=== PATIENT | female | born 2000 | race Caucasian/White ===

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

== ENCOUNTER 2023-04-17 19:57 | Emergency (ER) | payer OTHER, SELFPAY ==
--- NOTE | ~2023-04-17 | XR_ITS ---
EXAMINATION: PELVIS RIGHT HIP RIGHT KNEE LEFT KNEE CLINICAL INFORMATION: Pain COMPARISON: None. TECHNIQUE: Frontal view of the pelvis 2 views right hip 2 views right knee 2 views left knee FINDINGS: Pelvis: The SI joints, hips and symphysis are normal alignment. No fracture or focal lesion. No evidence of an abnormal pelvic mass or collection. Right hip: No fracture or subluxation. Sclerotic lesion in the right supra-acetabular region could be a bone island but is nonspecific. The femoral head contour appears smooth. Right knee: No fracture, subluxation, or focal lesion. The joint spaces are preserved. No evidence of joint fluid or opaque loose body. Left knee: No fracture, subluxation or focal lesion. The joint spaces are preserved. There is no evidence of joint fluid. XR/XR knee LT 2V IMPRESSION: No acute abnormality demonstrated. No history of trauma is provided
--- NOTE | ~2023-04-17 | XR_ITS ---
EXAMINATION: PELVIS RIGHT HIP RIGHT KNEE LEFT KNEE CLINICAL INFORMATION: Pain COMPARISON: None. TECHNIQUE: Frontal view of the pelvis 2 views right hip 2 views right knee 2 views left knee FINDINGS: Pelvis: The SI joints, hips and symphysis are normal alignment. No fracture or focal lesion. No evidence of an abnormal pelvic mass or collection. Right hip: No fracture or subluxation. Sclerotic lesion in the right supra-acetabular region could be a bone island but is nonspecific. The femoral head contour appears smooth. Right knee: No fracture, subluxation, or focal lesion. The joint spaces are preserved. No evidence of joint fluid or opaque loose body. Left knee: No fracture, subluxation or focal lesion. The joint spaces are preserved. There is no evidence of joint fluid. XR/XR knee RT 2V IMPRESSION: No acute abnormality demonstrated. No history of trauma is provided
--- NOTE | ~2023-04-17 | XR_ITS ---
EXAMINATION: PELVIS RIGHT HIP RIGHT KNEE LEFT KNEE CLINICAL INFORMATION: Pain COMPARISON: None. TECHNIQUE: Frontal view of the pelvis 2 views right hip 2 views right knee 2 views left knee FINDINGS: Pelvis: The SI joints, hips and symphysis are normal alignment. No fracture or focal lesion. No evidence of an abnormal pelvic mass or collection. Right hip: No fracture or subluxation. Sclerotic lesion in the right supra-acetabular region could be a bone island but is nonspecific. The femoral head contour appears smooth. Right knee: No fracture, subluxation, or focal lesion. The joint spaces are preserved. No evidence of joint fluid or opaque loose body. Left knee: No fracture, subluxation or focal lesion. The joint spaces are preserved. There is no evidence of joint fluid. XR/XR hip RT w PEL1V IMPRESSION: No acute abnormality demonstrated. No history of trauma is provided
[2023-04-17 20:05] VITALS: BP 105/66; PULSE 75; RESP 16; TEMP 36.2; O2SAT 98; BMI 23.8
--- OUTSIDE RECORDS SUMMARY | 2023-04-17 20:43 | XMS_ITS | Continuity of Care Document ---
Author Name Unknown Organization [facility] Address [address] [place] [address]- Care Team Providers Care Humidifier Maintenance Worker Name Role Phone Allison ALEXANDER, Joana Rubi Primary Care Physician [phone] [place] [facility] [place]20 [facility] [address] [place] [id number] Attending Physician: Warren Gleason Allergies, Adverse Reactions, Alerts Substance Reaction Severity Status amoxicillin nausea and vomitting Active Medications Pt.'s Own Meds Maintenance, Control Pills, 03/26/19 10:35:21 EST Start Date: 03/26/19 Status: Ordered Senna 8.6 mg oral tablet 8.6 mg, 1, tablet, By Mouth, Daily, PRN, for 30 days, # 36 tablet, Refills 6, Tot. Refills 6, Acute, for constipation, 07/30/20 14:06:00 EDT, 01/02/20 14:06:00 EDT, Route to Pharmacy Electronically, [facility]/pharmacy #[id number] Tablet, 161, cm, 11/10/19 15:45:0... Start Date: 01/02/20 Stop Date: 07/30/20 Status: Ordered Problem List Condition Effective Dates Status Health Status Inform ant Abdominal Pain(Confirmed) Active Constipation(Confirmed) Active Social History Social History Type Response Smoking Status Never smoker; Tobacc o user in household: No entered on: 06/06/17 Sex
--- OUTSIDE RECORDS SUMMARY | 2023-04-17 20:43 | XMS_ITS | Continuity of Care Document ---
Author Name Unknown Organization [facility] Address [address] [place] [address]- Care Team Providers Care Sales Utility Representative Name Role Phone Joana Cooper MD Primary Care Physician Encounter [facility] [place] Date(s): 06/04/20 - 07/04/20 [facility] [address] [place] [address]- Allergies, Adverse Reactions, Alerts Substance Reaction Severity Status amoxicillin nausea and vomitting Active Medications Amitiza 24 mcg oral capsule 1 capsule = 24 mcg, By Mouth, 2 times a day, # 60 capsule, 6 Refills, Maintenance, 06/17/20 19:24:00 EST, Capsule, [id number], Partial fill upon patient request if the prescription is for a schedule II opioid drug., 161, cm, 11/10/19 15:45:00... Start Date: 06/17/20 Stop Date: 01/13/21 Status: Ordered Dulcolax 5 mg oral enteric coated tablet 3 tablet = 15 mg, By Mouth, Once, # 4 tablet, 0 Refills, Soft Stop, 06/04/20 14:44:00 EST, [id number], Partial fill upon patient request if the prescription is for a schedule II opioid drug.,161, cm, 11/10/19 15:45:00 EDT, Height, 50.4, kg, 0... Start Date: 06/04/20 Status: Ordered MiraLax = 17 Gm, By Mouth, Daily, 0 Refills, Maintenance, 06/26/20 10:54:00 EST, Partial fill upon patient request if the prescription is for a schedule II opioid drug. Start Date: 06/26/20 Status: Ordered Pt.'s Own Meds Maintenance, Control Pills, 03/26/19 10:35:21 EST Start Date: 03/26/19 Status: Ordered Senna 8.6 mg oral tablet 8.6 mg, 1, tablet, By Mouth, Daily, PRN, for 30 days, # 36 tablet, Refills 6, Tot. Refills 6, Acute, for constipation, 07/30/20 14:06:00 EDT, 01/02/20 14:06:00 EDT, Route to Pharmacy Electronically, [facility]/pharmacy #[id number] Tablet, 161, cm, 11/10/19 15:45:0... Start Date: 01/02/20 Stop Date: 07/30/20 Status: Ordered Problem List Condition Effective Dates Status Health Status Inform ant Abdominal Pain(Confirmed) Active Constipation(Confirmed) Active Social History Social History Type Response Smoking Status Never smoker; Tobacc o user in household: No entered on: 06/06/17 Sex
--- OUTSIDE RECORDS SUMMARY | 2023-04-17 20:43 | XMS_ITS | Continuity of Care Document ---
Author Name Unknown Organization [facility] Address [address] [place] [id number]- Care Team Providers Care International Trade Teacher Name Role Phone Joana Cooper MD Primary Care Physician [place] [facility] [place](s): 12/04/21 - 01/03/22 [facility] [address] [place] [id number] Allergies, Adverse Reactions, Alerts Substance Reaction Severity Status amoxicillin nausea and vomitting Active Cats Active Dogs Active Dust Active Grass Active Mold Active Pollen Active Medications acetaminophen 325 mg oral capsule 2 capsule = 650 mg, By Mouth, Every 4 hours, PRN as needed for pain, # 50 tablet, 0 Refills, Maintenance, 12/20/21 17:11:00 EDT, Capsule, [id number], Partial fill upon patient request if the prescription is for a schedule II opioid drug., 158,... Start Date: 12/20/21 Status: Ordered Valerie By Mouth, 0 Refills, Maintenance, 09/11/20 13:38:00 EDT, Partial fill upon patient request if the prescription is for a schedule II opioid drug. Start Date: 09/11/20 Status: Ordered Amitiza 24 mcg oral capsule 1 capsule = 24 mcg, By Mouth, 2 times a day, # 60 capsule, 6 Refills, Maintenance, 06/17/20 19:24:00 EST, Capsule, [id number], Partial fill upon patient request if the prescription is for a schedule II opioid drug., 161, cm, 11/10/19 15:45:00... Start Date: 06/17/20 Stop Date: 01/13/21 Status: Ordered Aspirin Low Dose 81 mg oral delayed release tablet 2 tablet = 162 mg, By Mouth, Daily, # 90 tablet, 0 Refills, Maintenance, 11/29/21 1:08:00 EDT, CR Tablet, Partial fill upon patient request if the prescription is for a schedule II opioid drug. Start Date: 11/29/21 Status: Ordered control control, Refills 0, Maintenance, 09/11/20 13:38:00 EDT, Supply Start Date: 09/11/20 Status: Ordered Colace sodium 100 mg oral capsule 100 mg, 1, capsule, By Mouth, 2 times a day, PRN, # 20 capsule, Refills 0, Tot. Refills 0, Maintenance, for constipation, 12/20/21 17:11:00 EDT, Route to Pharmacy Electronically, [id number], Partial fill upon patient request if the prescriptio... Start Date: 12/20/21 Status: Ordered diclofenac sodium 50 mg oral delayed release tablet 1 tablet, By Mouth, 2 times a day, # 60 tablet, 0 Refills, [id number], 161, cm, 10/20/20 13:05:00 EDT, Height, 50.4, kg, 11/10/19 15:45:00 EDT, Dry Weight Start Date: 01/28/21 Status: Ordered Dulcolax 5 mg oral enteric coated tablet 3 tablet = 15 mg, By Mouth, Once, # 4 tablet, 0 Refills, Soft Stop, 06/04/20 14:44:00 EST, [id number], Partial fill upon patient request if the prescription is for a schedule II opioid drug.,161, cm, 11/10/19 15:45:00 EDT, Height, 50.4, kg, 0... Start Date: 06/04/20 Status: Ordered Ferrous Sulfate ER Refills 0, Maintenance, 11/29/21 1:08:00 EDT, Partial fill upon patient request if the prescriptionis for a schedule II opioid drug. Start Date: 11/29/21 Status: Ordered ibuprofen 600 mg oral tablet 600 mg, 1, tablet, By Mouth, Every 6 hours, # 50 tablet, Refills 0, Tot. Refills 0, Maintenance, 12/20/21 17:11:00 EDT, Route to Pharmacy Electronically, [id number], Partial fill upon patientrequest if the prescription is for a schedule II op... Start Date: 12/20/21 Status: Ordered metroNIDAZOLE 500 mg oral tablet 1 tablet = 500 mg, By Mouth, Every 12 hours, # 14 tablet, 0 Refills, Maintenance, 11/29/21 3:25:00 EDT, Tablet, [facility]/pharmacy #[id number], Partial fill upon patient request if the prescription is for a schedule II opioid drug., 160.2, cm, 06/10/21 11:01:00 E... Start Date: 11/29/21 Stop Date: 12/06/21 Status: Ordered MiraLax = 17 Gm, By Mouth, Daily, 0 Refills, Maintenance, 06/26/20 10:54:00 EST, Partial fill upon patient request if the prescription is for a schedule II opioid drug. Start Date: 06/26/20 Status: Ordered 1 0 Refills, Maintenance, 06/10/21 11:03:00 EST, Partial fill upon patient request if the prescription is for a schedule II opioid drug. Start Date: 06/10/21 Status: Ordered Pt.'s Own Meds Maintenance, Control Pills, 03/26/19 10:35:21 EST Start Date: 03/26/19 Status: Ordered simethicone 125 mg oral tablet, chewable 1 tablet = 125 mg, Chew, 4 times a day, # 48 tablet, 0 Refills, Maintenance, 12/20/21 17:11:00 EDT,Chew Tablet, [facility]/pharmacy #[id number], Partial fill upon patient request if the prescription is for a schedule II opioid drug., 158, cm, 12/20/21 9:04:00 EDT... Start Date: 12/20/21 Status: Ordered Problem List Condition Effective Dates Status Health Status Inform ant Abdominal Pain(Confirmed) Active Constipation(Confirmed) Active Social History Social History Type Response Smoking Status Never smoker; Tobacc o user in household: No entered on: 06/06/17 Sex
--- OUTSIDE RECORDS SUMMARY | 2023-04-17 20:43 | XMS_ITS | Continuity of Care Document ---
Author Name Unknown Organization [facility] Address [address] [place] [address]- Care Team Providers Care International Trade Compliance Manager Name Role Phone Allison ALEXANDER, Joana Rubi Primary Care Physician Encounter [facility] [place] Date(s): 10/20/20 - 11/19/20 [facility] [address] [place] [id number] Attending Physician: Warren Gleason Admitting Physician: AdmtrWarren Referring Physician: AdmtrWarren Allergies, Adverse Reactions, Alerts Substance Reaction Severity Status amoxicillin nausea and vomitting Active Cats Active Dogs Active Dust Active Grass Active Mold Active Pollen Active Medications Valerie By Mouth, 0 Refills, Maintenance, 09/11/20 [...] Date: 06/17/20 Stop Date: 01/13/21 Status: Ordered control control, Refills 0, Maintenance, 09/11/20 13:38:00 EDT, Supply Start Date: 09/11/20 Status: Ordered diclofenac sodium 50 mg oral delayed release tablet 1 tablet, By Mouth, 2 times a day, # 60 tablet, 0 Refills, Maintenance, 10/02/20 9:36:00 EDT, [id number], 161, cm, 09/08/20 12:58:00 EDT, Height, 50.4, kg, 11/10/19 15:45:00 EDT, Dry Weight Start Date: 10/02/20 Status: Ordered Dulcolax 5 mg oral enteric coated tablet 3 tablet = 15 mg, By Mouth, Once, # 4 tablet, 0 Refills, Soft Stop, 06/04/20 14:44:00 EST, [facility]/pharmacy #[id number], Partial fill upon patient request if [...] 10:35:21 EST Start Date: 03/26/19 Status: Ordered Problem List Condition Effective Dates Status Health Status Inform ant Abdominal Pain(Confirmed) Active Constipation(Confirmed) Active Social History Social History Type Response Smoking Status Never smoker; Tobacc o user in household: No entered on: 06/06/17 Sex
--- OUTSIDE RECORDS SUMMARY | 2023-04-17 20:43 | XMS_ITS | Continuity of Care Document ---
Author Name Unknown Organization [facility] Address [address] [place] [address]- Care Team Providers Care Correctional Manager Name Role Phone Allison ALEXANDER, Joana Rubi Primary Care Physician [phone] Encounter [facility] [place] Date(s): 10/20/20 - 10/27/20 [facility] [address] [place] [id number] Attending Physician: Fercho Alfonso MD Admitting Physician: Fercho Alfonso MD Allergies, Adverse Reactions, Alerts Substance Reaction Severity [...] 6 Refills, Maintenance, 06/17/20 19:24:00 EST, Capsule, [facility]/pharmacy #[id number], Partial fill upon patient request [...] Refills, Maintenance, 10/02/20 9:36:00 EDT, [id number], 161, cm, 09/08/20 12:58:00 EDT, Height, 50.4, kg, 11/10/19 15:45:00 EDT, Dry Weight Start Date: 10/02/20 Status: Ordered Dulcolax 5 mg oral enteric coated tablet 3 tablet = 15 mg, By Mouth, Once, # 4 tablet, 0 Refills, Soft Stop, 06/04/20 14:44:00 EST, [facility]/pharmacy #[id number], Partial fill upon patient request [...] Inform ant Abdominal Pain(Confirmed) Active Constipation(Confirmed) Active Vital Signs Most recent to oldest [Reference Range]: 1 Height 161 cm (10/20/20 1:05 PM) Social History Social History Type Response Smoking Status Never smoker; Tobacc o user in household: No entered on: 06/06/17 Sex
--- OUTSIDE RECORDS SUMMARY | 2023-04-17 20:43 | XMS_ITS | Continuity of Care Document ---
Author Name Unknown Organization [facility] Address [address] [place] [address]- Care Team Providers Care Circuit Designer Name Role Phone Joana Cooper MD Primary Care Physician Encounter [facility] [place] Date(s): 06/13/20 - 07/13/20 [facility] [address] [place] [address]- Allergies, Adverse Reactions, Alerts Substance Reaction Severity [...] 01/02/20 14:06:00 EDT, Route to Pharmacy Electronically, [facility]/pharmacy #[id number] Tablet, 161, cm, 11/10/19 15:45:0... Start Date: 01/02/20 Stop Date: 07/30/20 Status: Ordered Problem List Condition Effective Dates Status Health Status Inform ant Abdominal Pain(Confirmed) Active Constipation(Confirmed) Active Social History Social History Type Response Smoking Status Never smoker; Tobacc o user in household: No entered on: 06/06/17 Sex
--- OUTSIDE RECORDS SUMMARY | 2023-04-17 20:43 | XMS_ITS | Continuity of Care Document ---
Author Name Unknown Organization [facility] ialty Address [address] [place] [address]- Care Team Providers Care Unit Educator Name Role Phone Joana Cooper MD Primary Care Physician [place] [facility] [place] [id number] Date(s): 05/02/19 - 05/12/19 [facility] [address] [place] [address]- [facility] Attending Physician: Warren Gleason Admitting Physician: AdmtrWarren Referring Physician: Admtr, ArJimena Allergies, Adverse Reactions, Alerts Substance Reaction Severity Status amoxicillin Active Medications diclofenac sodium 50 mg oral delayed release tablet 1 tablet = 50 mg, By Mouth, 2 times a day, # 60 tablet, 2 Refills, Maintenance, 01/01/19 13:54:50 EDT, EC Tablet Start Date: 01/01/19 Stop Date: 04/01/19 Status: Ordered diclofenac sodium 50 mg oral delayed release tablet 1 tablet = 50 mg, By Mouth, 2 times a day, with food, # 60 tablet, 2 Refills, Maintenance, 05/02/1914:34:00 EST, EC Tablet, [facility]/pharmacy #[id number], 158, cm, 05/02/19 13:47:00 EST, Height, 53, kg, 10/06/18 15:48:00 EDT, Dry Weight Start Date: 05/02/19 Status: Ordered diclofenac sodium 50 mg oral delayed release tablet 1 tablet = 50 mg, By Mouth, 2 times a day, with food, # 60 tablet, 2 Refills, Maintenance, 02/07/1812:16:09 EDT, EC Tablet Start Date: 02/06/18 Status: Ordered Diclofenac Topical Topically, 0 Refills, Maintenance, 01/01/19 13:55:52 EDT Start Date: 01/01/19 Status: Ordered Dulcolax 5 mg oral enteric coated tablet 3 tablet = 15 mg, By Mouth, Once, # 4 tablet, 0 Refills, Soft Stop, 09/29/17 15:58:08 EDT Start Date: 09/29/17 Status: Ordered ibuprofen 400 mg oral tablet 400 mg, By Mouth, Every 6 hours, PRN, # 50 tablet, Refills 0, Tot. Refills 0, Soft Stop, Pain , Mild, 10/06/18 16:13:07 EDT, Print Requisition Start Date: 10/06/18 Status: Ordered MiraLax oral powder for reconstitution = 17 Gm, By Mouth, Daily, # 30 Doses, 11 Refills, Maintenance, 06/30/16 17:59:32, 17 Gm By Mouth Daily,x30 days Start Date: 06/30/16 Stop Date: 06/25/17 Status: Ordered Multivitamin Daily, 0 Refills, Maintenance, 02/06/18 11:40:58 EDT Start Date: 02/06/18 Status: Ordered Pt.'s Own Meds Maintenance, Control Pills, 03/26/19 10:35:21 EST Start Date: 03/26/19 Status: Ordered Problem List Condition Effective Dates Status Health Status Inform ant Abdominal Pain(Confirmed) Active Constipation(Confirmed) Active Social History Social History Type Response Smoking Status Never smoker; Tobacc o user in household: No entered on: 06/06/17 Sex
--- OUTSIDE RECORDS SUMMARY | 2023-04-17 20:43 | XMS_ITS | Continuity of Care Document ---
Author Name Unknown Organization [facility] ialty Address [address] [place] [address]- Care Team Providers Care Paper Tube Grader Name Role Phone Joana Cooper MD Primary Care Physician [phone] [place] [facility] [place] 05/02/19 - 05/09/19 [facility] [address] [place] [address]- [facility] Attending Physician: Fercho Alfonso MD Referring Physician: Joana Cooper MD Allergies, Adverse Reactions, Alerts Substance Reaction [...] 2 Refills, Maintenance, 05/02/1914:34:00 EST, EC Tablet, [facility]/pharmacy #[id number], 158, cm, 05/02/19 13:47:00 EST, [...] recent to oldest [Reference Range]: 1 Height 158 cm (05/02/19 1:47 PM) Social History Social History Type Response Smoking Status Never smoker; Tobacc o user in household: No entered on: 06/06/17 Sex
--- OUTSIDE RECORDS SUMMARY | 2023-04-17 20:43 | XMS_ITS | Continuity of Care Document ---
Author Name Unknown Organization [facility] Address [address] [place] [address]- Care Team Providers Care Toolroom Attendant Name Role Phone Joana Cooper MD Primary Care Physician [phone] Encounter [facility] [place] Date(s): 06/26/20 - 07/26/20 [facility] [address] [place] [address]- Attending Physician: Warren Gleason Admitting Physician: AdmtrWarren Referring Physician: Admtr, Ar8 Allergies, Adverse Reactions, Alerts Substance Reaction Severity [...] 01/02/20 14:06:00 EDT, Route to Pharmacy Electronically, [facility]/pharmacy #[id number] Tablet, 161, cm, 11/10/19 15:45:0... Start Date: 01/02/20 Stop Date: 07/30/20 Status: Ordered Problem List Condition Effective Dates Status Health Status Inform ant Abdominal Pain(Confirmed) Active Constipation(Confirmed) Active Social History Social History Type Response Smoking Status Never smoker; Tobacc o user in household: No entered on: 06/06/17 Sex
--- OUTSIDE RECORDS SUMMARY | 2023-04-17 20:43 | XMS_ITS | Continuity of Care Document ---
Author Name Unknown Organization [facility] Address [address] [place] [address]- Care Team Providers Care History Instructor Name Role Phone Joana Cooper MD Primary Care Physician [place] [facility] [place] 07/29/21 - 08/28/21 [facility] [address] [place] [id number] Allergies, Adverse Reactions, Alerts Substance Reaction Severity [...] # 60 tablet, 0 Refills, [facility], 161, cm, 10/20/20 13:05:00 EDT, Height, 50.4, kg, 11/10/19 15:45:00 EDT, Dry Weight Start Date: 01/28/21 Status: Ordered Dulcolax 5 mg oral enteric coated tablet 3 tablet = 15 mg, By Mouth, Once, # 4 tablet, 0 Refills, Soft Stop, 06/04/20 14:44:00 EST, [facility]/pharmacy #[id number], Partial fill upon patient request [...]
--- OUTSIDE RECORDS SUMMARY | 2023-04-17 20:43 | XMS_ITS | Continuity of Care Document ---
Author Name Unknown Organization [facility] Address [address] [place] [address]- Care Team Providers Care Prehemmer Name Role Phone Allison ALEXANDER, Joana Rubi Primary Care Physician [place] [facility] [place] Date(s): 06/26/20 - 07/03/20 [facility] [address] [place] [address]- Attending Physician: Paul Levy MD Allergies, Adverse Reactions, Alerts Substance Reaction [...] 01/02/20 14:06:00 EDT, Route to Pharmacy Electronically, [facility]/pharmacy #[id number] Tablet, 161, cm, 11/10/19 15:45:0... Start Date: 01/02/20 Stop Date: 07/30/20 Status: Ordered Problem List Condition Effective Dates Status Health Status Inform ant Abdominal Pain(Confirmed) Active Constipation(Confirmed) Active Vital Signs Most recent to oldest [Reference Range]: 1 Weight Obtained Via Patient/family state d (06/26/20 10:53 AM) Social History Social History Type Response Smoking Status Never smoker; Tobacc o user in household: No entered on: 06/06/17 Sex
--- OUTSIDE RECORDS SUMMARY | 2023-04-17 20:43 | XMS_ITS | Continuity of Care Document ---
Author Name Unknown Organization [facility] Address [address] [place] [address]- Care Team Providers Care Product Safety Coordinator Name Role Phone Joana Cooper MD Primary Care Physician Encounter [facility] Date(s): 12/03/20 - 01/02/[address] [address] Attending Physician: Admtr, Ar8 Admitting Physician: Admtr, Ar8 Referring Physician: Admtr, Ar8 Allergies, Adverse Reactions, [...] 6 Refills, Maintenance, 06/17/20 19:24:00 EST, Capsule, [facility]/pharmacy #[id number], Partial fill upon patient request if [...] Refills, Maintenance, 10/02/20 9:36:00 EDT, [facility], 161, cm, 09/08/20 12:58:00 EDT, Height, 50.4, kg, 11/10/19 15:45:00 EDT, Dry Weight Start Date: 10/02/20 Status: Ordered Dulcolax 5 mg oral enteric coated tablet 3 tablet = 15 mg, By Mouth, Once, # 4 tablet, 0 Refills, Soft Stop, 06/04/20 14:44:00 EST, [facility]/pharmacy #[id number], Partial fill upon patient request if [...]
--- OUTSIDE RECORDS SUMMARY | 2023-04-17 20:44 | XMS_ITS | Continuity of Care Document ---
Author Name Unknown Organization [facility] Address [address] [place] [address]- Care Team Providers Care Asphalt Paving Machine Operator Name Role Phone Allison ALEXANDER, Joana Rubi Primary Care Physician Encounter [facility] [place] Date(s): 09/08/20 - 09/15/20 [facility] [address] [place] [id number] Attending Physician: Fercho Alfonso MD Admitting Physician: [...] day, # 60 tablet, 0 Refills, Maintenance, 09/08/20 13:13:00 EDT, EC Tablet, [id number], Partial fill upon patient request if the prescription is for a schedule II opioid drug., 161, cm, 09/08/20 12:58:00 E... Start Date: 09/08/20 Status: Ordered Dulcolax 5 mg oral enteric coated tablet 3 tablet = 15 mg, By Mouth, Once, # 4 tablet, 0 Refills, Soft Stop, 06/04/20 14:44:00 EST, [facility]/pharmacy #[id number], Partial fill upon patient request if [...] oldest [Reference Range]: 1 Height 161 cm (09/08/20 12:58 PM) Social History Social History Type Response Smoking Status Never smoker; Tobacc o user in household: No entered on: 06/06/17 Sex
--- OUTSIDE RECORDS SUMMARY | 2023-04-17 20:44 | XMS_ITS | Continuity of Care Document ---
Author Name Unknown Organization [facility] Address [address] [place] [address]- Care Team Providers Care Junior Bookkeeper Name Role Phone Allison ALEXANDER, Joana Rubi Primary Care Physician [phone] En[place] [facility] [place] Date(s): 01/02/20 - 01/09/20 [facility] [address] [place] [address]- [facility] Attending Physician: Paul Levy MD Allergies, Adverse [...] 01/02/20 14:06:00 EDT, Route to Pharmacy Electronically, [facility]/pharmacy #[id number] Tablet, 161, cm, 11/10/19 15:45:0... Start Date: 01/02/20 Stop Date: 07/30/20 Status: Ordered Problem List Condition Effective Dates Status Health Status Inform ant Abdominal Pain(Confirmed) Active Constipation(Confirmed) Active Social History Social History Type Response Smoking Status Never smoker; Tobacc o user in household: No entered on: 06/06/17 Sex
--- OUTSIDE RECORDS SUMMARY | 2023-04-17 20:44 | XMS_ITS | Continuity of Care Document ---
Author Name Unknown Organization [facility] Address [address] [place] [address]- Care Team Providers Care Federal Law Clerk Name Role Phone Allison ALEXANDER, Joana Rubi Primary Care Physician [phone] [place] [facility] [place] Date(s): 12/05/19 - 01/04/20 [facility] [address] [place] [address]- [place] [facility] Attending Physician: Warren Gleason Admitting Physician: Warren Gleason Referring Physician: Warren Gleason Allergies, Adverse Reactions, Alerts [...] 01/02/20 14:06:00 EDT, Route to Pharmacy Electronically, [facility]/pharmacy #[id number] Tablet, 161, cm, 11/10/19 15:45:0... Start Date: 01/02/20 Stop Date: 07/30/20 Status: Ordered Problem List Condition Effective Dates Status Health Status Inform ant Abdominal Pain(Confirmed) Active Constipation(Confirmed) Active Social History Social History Type Response Smoking Status Never smoker; Tobacc o user in household: No entered on: 06/06/17 Sex
--- OUTSIDE RECORDS SUMMARY | 2023-04-17 20:44 | XMS_ITS | Continuity of Care Document ---
Author Name Unknown Organization [facility] Address [address] [place] [address]- Care Team Providers Care Float Remover Name Role Phone Joana Cooper MD Primary Care Physician [place] [facility] [place] - 09/04/21 [facility] [address] [place] [id number] Allergies, Adverse Reactions, Alerts Substance Reaction Severity Status amoxicillin nausea and vomitting Active Cats Active Dogs Active Mold Active Dust Active Grass Active Pollen Active Medications Valerie By Mouth, [...] # 60 tablet, 0 Refills, [facility], 161, cm, 10/20/20 13:05:00 EDT, Height, 50.4, kg, 11/10/19 15:45:00 EDT, Dry Weight Start Date: 01/28/21 Status: Ordered Dulcolax 5 mg oral enteric coated tablet 3 tablet = 15 mg, By Mouth, Once, # 4 tablet, 0 Refills, Soft Stop, 06/04/20 14:44:00 EST, [facility]/pharmacy #[id number], Partial fill upon patient request [...]
--- OUTSIDE RECORDS SUMMARY | 2023-04-17 20:44 | XMS_ITS | Continuity of Care Document ---
Author Name Unknown Organization [facility] Address [address] [place] [address]- Care Team Providers Care Blending Machine Operator Name Role Phone Joana Cooper MD Primary Care Physician [place] [facility] [place]18[place] - 12/20/[address] [address]- Discharge Disposition: A-D/C Home Attending Physician: Bonita Han MD Admitting Physician: Bonita Han MD Referring Physician: Bonita Han MD Allergies, Adverse Reactions, Alerts Substance Reaction [...] 12/20/21 17:11:00 EDT, Route to Pharmacy Electronically, [facility]/pharmacy #[id number], Partial fill upon patient request if the prescriptio... Start Date: 12/20/21 Status: Ordered diclofenac sodium 50 mg oral delayed release tablet 1 tablet, By Mouth, 2 times a day, # 60 tablet, 0 Refills, [facility], 161, cm, 10/20/20 13:05:00 EDT, Height, 50.4, kg, 11/10/19 15:45:00 EDT, Dry Weight Start Date: 01/28/21 Status: Ordered Dulcolax 5 mg oral enteric coated tablet 3 tablet = 15 mg, By Mouth, Once, # 4 tablet, 0 Refills, Soft Stop, 06/04/20 14:44:00 EST, [facility]/pharmacy #[id number], Partial fill upon patient [...] 0 Refills, Maintenance, 11/29/21 3:25:00 EDT, [facility]t, [id number], Partial fill upon patient [...] 0 Refills, Maintenance, 12/20/21 17:11:00 EDT,Chew Tablet, [id number], Partial fill upon patient request if the prescription is for a schedule II opioid drug., 158, cm, 12/20/21 9:04:00 EDT... Start Date: 12/20/21 Status: Ordered Problem List Condition Effective Dates Status Health Status Inform ant Abdominal Pain(Confirmed) Active Constipation(Confirmed) Active Procedures Procedure Date Related Diagnosis Body Site Status Shoulder repair Completed Wrist repair Completed Vital Signs Most recent to oldest [Reference Range]: 1 2 3 Height 158 cm (12/20/21 8:00 AM) 158 cm (12/20/21 1:25 AM) 158 cm (12/19/21 8:48 PM) Weight 77.5 kg (12/18/21 2:20 PM) 78.3 kg (12/18/21 1:31 AM) Oxygen Saturation [94-100 %] 96 % (12/20/21 8:00 AM) 99 % (12/20/21 1:25 AM) 100 % (12/19/21 8:48 PM) Pulse Rate [55-90 bpm] 79 bpm (12/20/21 8:00 AM) 87 bpm (12/20/21 1:25 AM) 95 bpm *H* (12/19/21 8:48 PM) Body Mass Index [18.5-24.99] 31.04 *>HHI* (12/18/21 2:20 PM) Blood Pressure [90-138/55-84 mm Hg] 111/58mm Hg (12/20/21 8:00 AM) 113/70mm Hg (12/20/21 1:25 AM) 118/68mm Hg (12/19/21 8:48 PM) Respiratory Rate [16-30 br/min] 18 br/min (12/20/21 8:00 AM) 18 br/min (12/20/21 1:25 AM) 18 br/min (12/19/21 8:48 PM) Temperature [96.8-100.4 DegF] 97.8 DegF (12/20/21 8:00 AM) 98.1 DegF (12/20/21 1:25 AM) 98.1 DegF (12/19/21 8:48 PM) Mode of Delivery (Oxygen) Room air (12/20/21 1:25 AM) Room air (12/19/21 8:48 PM) Room air (12/19/21 4:00 PM) Blood pressure sites Arm, right (12/20/21 8:00 AM) Arm, right (12/20/21 1:25 AM) Arm, right (12/19/21 8:48 PM) Temperature Route Oral (12/20/21 8:00 AM) Oral (12/20/21 1:25 AM) Oral (12/19/21 8:48 PM) Dry Weight 77.5 kg (12/18/21 2:20 PM) 78.3 kg (12/18/21 1:31 AM) Weight Obtained Via Standing scale (12/18/21 1:31 AM) Dry Weight Obtained Via Standing scale (12/18/21 1:31 AM) Social History Social History Type Response Smoking Status Never smoker; Tobacc o user in household: No entered on: 06/06/17 Sex
--- OUTSIDE RECORDS SUMMARY | 2023-04-17 20:44 | XMS_ITS | Continuity of Care Document ---
Author Name Unknown Organization [facility] Address [address] [place] [address]- Care Team Providers Care Aluminum Hydroxide Process Operator Name Role Phone Joana Cooper MD Primary Care Physician [phone] En[facility] [place] Date(s): 08/04/21 - 09/03/21 [facility] [address] [place] [address]- Attending Physician: Admtr, Ar8 Admitting Physician: Admtr, [...] # 60 tablet, 0 Refills, [facility], 161, cm, 10/20/20 13:05:00 EDT, Height, 50.4, kg, 11/10/19 15:45:00 EDT, Dry Weight Start Date: 01/28/21 Status: Ordered Dulcolax 5 mg oral enteric coated tablet 3 tablet = 15 mg, By Mouth, Once, # 4 tablet, 0 Refills, Soft Stop, 06/04/20 14:44:00 EST, [facility]/pharmacy #[id number], Partial fill upon patient request if [...]
--- OUTSIDE RECORDS SUMMARY | 2023-04-17 20:44 | XMS_ITS | Continuity of Care Document ---
Author Name Unknown Organization [facility] Address [address] [place] [address]- Care Team Providers Care Block Cutter Name Role Phone Allison ALEXANDER, Joana Rubi Primary Care Physician En[place] [facility] [place] Date(s): 03/25/21 - 04/24/21 [facility] [address] [place] [address]- [place] Allergies, Adverse Reactions, Alerts Substance Reaction Severity [...] # 60 tablet, 0 Refills, [facility], 161, cm, 10/20/20 13:05:00 EDT, Height, 50.4, kg, 11/10/19 15:45:00 EDT, Dry Weight Start Date: 01/28/21 Status: Ordered Dulcolax 5 mg oral enteric coated tablet 3 tablet = 15 mg, By Mouth, Once, # 4 tablet, 0 Refills, Soft Stop, 06/04/20 14:44:00 EST, [facility]/pharmacy #[id number], Partial fill upon patient request [...]
--- OUTSIDE RECORDS SUMMARY | 2023-04-17 20:44 | XMS_ITS | Continuity of Care Document ---
Author Name Unknown Organization [facility] Address [address] [place] [address]- Care Team Providers Care Outsole Paraffiner Name Role Phone Joana Cooper MD Primary Care Physician Encounter [facility] [place] Date(s): 11/29/21 - 11/29/[address] [address]- Discharge Disposition: A-D/C Home Attending Physician: Andrés ALEXANDER July Admitting Physician: Andrés ALEXANDER July Referring Physician: Andrés ALEXANDER July Allergies, Adverse Reactions, Alerts Substance Reaction Severity [...] 6 Refills, Maintenance, 06/17/20 19:24:00 EST, Capsule, [facility]/pharmacy #[id number], Partial fill upon patient request if [...] # 60 tablet, 0 Refills, [facility], 161, cm, 10/20/20 13:05:00 EDT, Height, 50.4, [...] opioid drug. Start Date: 11/29/21 Status: Ordered metroNIDAZOLE 500 mg oral tablet 1 tablet = 500 mg, By Mouth, Every 12 hours, # 14 tablet, 0 Refills, Maintenance, 11/29/21 3:25:00 EDT, Tablet, [facility]/pharmacy #[id number], Partial fill upon patient request if [...] Most recent to oldest [Reference Range]: 1 Oxygen Saturation [94-100 %] 95 % (11/29/21 1:09 AM) Blood Pressure [90-138/55-84 mm Hg] 117/ 80mm Hg (11/29/21 1:09 AM) Respiratory Rate [16-30 br/min] 18 br/mi n (11/29/21 1:05 AM) Temperature [96.8-100.4 DegF] 98.7 DegF (11/29/21 1:05 AM) Mode of Delivery (Oxygen) Room air (11/29/21 1:05 AM) Blood pressure sites Arm, right (11/29/21 1:05 AM) Temperature Route Oral (11/29/21 1:05 AM) Social History Social History Type Response Smoking Status Never smoker; Tobacc o user in household: No entered on: 06/06/17 Sex
--- OUTSIDE RECORDS SUMMARY | 2023-04-17 20:44 | XMS_ITS | Continuity of Care Document ---
Author Name Unknown Organization [facility] Address [address] [place] [address]- Care Team Providers Care Field Producer Name Role Phone Joana Cooper MD Primary Care Physician [place] [facility] [place]s): 06/10/21 - 07/10/21 [facility] [address] [place] [address]- Attending Physician: Warren Gleason Admitting Physician: AdmtrWarren [...] # 60 tablet, 0 Refills, [facility], 161, cm, 10/20/20 13:05:00 EDT, Height, 50.4, kg, 11/10/19 15:45:00 EDT, Dry Weight Start Date: 01/28/21 Status: Ordered Dulcolax 5 mg oral enteric coated tablet 3 tablet = 15 mg, By Mouth, Once, # 4 tablet, 0 Refills, Soft Stop, 06/04/20 14:44:00 EST, [facility]/pharmacy #[id number], Partial fill upon patient request [...]
--- OUTSIDE RECORDS SUMMARY | 2023-04-17 20:44 | XMS_ITS | Continuity of Care Document ---
Author Name Unknown Organization [facility] Address [address] [place] [address]- Care Team Providers Care Superintendent Transportation Name Role Phone Joana Cooper MD Primary Care Physician [place] [facility] [place] 06/10/21 - 07/10/21 [facility] [address] [place] [address]- Attending Physician: Admtr, Ar8 Admitting Physician: Admtr, [...] # 60 tablet, 0 Refills, [facility], 161, cm, 10/20/20 13:05:00 EDT, Height, 50.4, kg, 11/10/19 15:45:00 EDT, Dry Weight Start Date: 01/28/21 Status: Ordered Dulcolax 5 mg oral enteric coated tablet 3 tablet = 15 mg, By Mouth, Once, # 4 tablet, 0 Refills, Soft Stop, 06/04/20 14:44:00 EST, [facility]/pharmacy #[id number], Partial fill upon patient [...]
--- OUTSIDE RECORDS SUMMARY | 2023-04-17 20:44 | XMS_ITS | Continuity of Care Document ---
Author Name Unknown Organization [facility] Address [address] [place] [address]- Care Team Providers Care Horticultural Farmworker Name Role Phone Joana Cooper MD Primary Care Physician [place] [facility] [place](s): 09/11/20 - 12/16/[address] [address] Discharge Disposition: A-D/C Home Attending Physician: Fercho Alfonso MD Admitting Physician: Fercho Alfonso MD Referring Physician: Fercho Alfonso MD Allergies, Adverse Reactions, Alerts Substance Reaction Severity Status amoxicillin nausea and vomitting Active Cats Active Dogs Active Dust Active Grass Active Mold Active Pollen Active Medications Valreie By Mouth, 0 Refills, Maintenance, 09/11/20 13:38:00 [...] Refills, Maintenance, 10/02/20 9:36:00 EDT, [facility], 161, cm, 09/08/20 12:58:00 EDT, Height, 50.4, kg, 11/10/19 15:45:00 EDT, Dry Weight Start Date: 10/02/20 Status: Ordered Dulcolax 5 mg oral enteric coated tablet 3 tablet = 15 mg, By Mouth, Once, # 4 tablet, 0 Refills, Soft Stop, 06/04/20 14:44:00 EST, [facility]/pharmacy #[id number], Partial fill upon patient [...]
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
== END 2023-04-18 00:30 | disposition home or self-care (01) ==
PROVIDERS: Emergency Provider Internal Medicine; PCP Specialist
DX: R51.9 Headache, unspecified (principal); M25.562 Pain in left knee; M25.561 Pain in right knee; M25.551 Pain in right hip
CPT/HCPCS: 73502; 73560; 99282; 99284